=== PATIENT | female | born 1990 | race Caucasian/White ===

== ENCOUNTER 2022-05-04 18:14 | Emergency (ER) | payer MEDICAID ==
[~2022-05-04] VITALS: Ht 167.6 cm; Wt 91.8 kg
[2022-05-04 18:27] VITALS: BP 122/82; TEMP 98.2
[2022-05-04 19:51] LABS: COLLECTION METHOD CLEAN CATCH
[2022-05-04 20:12] LABS: BASO # 0.1 K/mm3 (0.0-0.2); BASO % 0.4 % (0.0-2.0); EOS # 0.2 K/mm3 (0.0-0.7); EOS % 1.5 % (0.0-4.0); GRAN # 9.6 K/mm3 (1.4-6.5); GRAN % 73.5 % (42.2-75.2); HEMATOCRIT 34.8 % (37.0-47.0); HEMOGLOBIN 11.5 g/dl (12.5-16.0); LYMPH # 2.6 K/mm3 (1.2-3.4); LYMPH % 19.7 % (20.0-51.0); MEAN CELL VOLUME 82 fl (80.0-100.0); MEAN CORPUSCULAR HEMOGLOBIN 27 pg (27-31); MEAN CORPUSCULAR HGB CONC 33 g/dl (33.0-37.0); MEAN PLATELET VOLUME 9.9 fl (7.4-10.4); MONO # 0.6 K/mm3 (0.1-0.6); MONO % 4.6 % (1.7-9.3); PLATELET COUNT 280 K/mm3 (130-400); RED BLOOD COUNT 4.26 M/mm3 (4.10-5.30); REDCELL DISTRIBUTION WIDTH-CV 14.1 % (11.5-14.5)
[2022-05-04 20:15] LABS: URINE APPEARANCE Clear (CLEAR/HAZY); URINE BLOOD Negative (NEGATIVE); URINE COLOR Yellow (YELLOW); URINE GLUCOSE Negative (NEGATIVE); URINE KETONE Negative (NEGATIVE); URINE NITRATE Negative (NEGATIVE); URINE PROTEIN(semi-quant) Negative (NEGATIVE); URINE UROBILINOGEN 0.2 E.U/dL (0.2-1.0)
[2022-05-04 20:18] LABS: MUCOUS Present (NOT PRESENT); SQUAMOUS EPITHELIAL 0-2 /hpf (0-10); URINE BACTERIA Rare /hpf (NONE SEEN); URINE RBC 0-2 /hpf (0-2)
[2022-05-04 20:30] LABS: ALBUMIN 3.2 gm/dL (3.5-5.0); BILIRUBIN,TOTAL 0.4 mg/dL (0.2-1.2); CALCIUM 8.7 mg/dL (8.4-10.2); CREATININE, serum 0.7 mg/dL (0.57-1.11); POTASSIUM 3.7 mmol/L (3.5-4.5)
[2022-05-04 21:19] VITALS: PULSE 84
== END 2022-05-04 21:19 | disposition home or self-care (01) ==
LOC: COL.ER 18:14
PROVIDERS: Physician Assistant
DX: O99.512 Diseases of the respiratory system complicating pregnancy, second trimester (principal); R05.3 Chronic cough; U09.9 Post COVID-19 condition, unspecified; Z28.310 Unvaccinated for COVID-19; Z91.040 Latex allergy status; Z3A.16 16 weeks gestation of pregnancy

== ENCOUNTER 2022-10-05 12:55 | Emergency (ER) | payer BC, MEDICAID ==
[~2022-10-05] VITALS: Ht 167.6 cm; Wt 100.4 kg
[~2022-10-05 12:55] MED LIST: ASPIRIN 81M81 MG/TA2 PO; MAGNESIUM200 MG PO; MOTRIN 600600 MG/TAB PO; NATURAL IRON65 MG; PRENATAL TABLET PO; PRILOSEC 20MG20 MG PO; PROCARDIA XL 3030 MG PO; ROXICODONE 55 MG/TAB PO; TRANDATE 100MG100 MG PO; TRANDATE 200MG200 MG PO; TYLENOL 500MG500 MG PO
[2022-10-05 13:02] VITALS: TEMP 98.4
[2022-10-05 13:45] LABS: BASO # 0.1 K/mm3 (0.0-0.2); BASO % 0.6 % (0.0-2.0); EOS # 0.3 K/mm3 (0.0-0.7); EOS % 2.4 % (0.0-4.0); GRAN # 7.3 K/mm3 (1.4-6.5); GRAN % 65.7 % (42.2-75.2); HEMOGLOBIN 10.6 g/dl (12.5-16.0); LYMPH # 2.9 K/mm3 (1.2-3.4); LYMPH % 26.2 % (20.0-51.0); MEAN CELL VOLUME 80 fl (80.0-100.0); MEAN CORPUSCULAR HEMOGLOBIN 24 pg (27-31); MEAN CORPUSCULAR HGB CONC 31 g/dl (33.0-37.0); MEAN PLATELET VOLUME 9.9 fl (7.4-10.4); MONO # 0.5 K/mm3 (0.1-0.6); MONO % 4.7 % (1.7-9.3); PLATELET COUNT 395 K/mm3 (130-400); RED BLOOD COUNT 4.34 M/mm3 (4.10-5.30); REDCELL DISTRIBUTION WIDTH-CV 17.1 % (11.5-14.5)
[2022-10-05 13:49] LABS: HEMATOCRIT 34.5 % (37.0-47.0)
[2022-10-05 13:58] LABS: COLLECTION METHOD CLEAN CATCH
[2022-10-05 13:58] LABS: ALANINE AMINOTRANSFERASE 29 U/L (0-55); ALBUMIN 3.4 gm/dL (3.5-5.0); ALKALINE PHOSPHATASE 96 U/L (40-150); ANION GAP 11 mmol/L (7-16); AST,SGOT 27 U/L (5-34); BILIRUBIN,TOTAL 0.4 mg/dL (0.2-1.2); BLOOD UREA NITROGEN 12 mg/dL (7-19); CALCIUM 9.6 mg/dL (8.4-10.2); CARBON DIOXIDE 22 mmol/L (22-29); CHLORIDE 108 mmol/L (98-107); CREATININE, serum 0.97 mg/dL (0.57-1.11); GLUCOSE 84 mg/dL (70-99); LACTATE DEHYDROGENASE 265 U/L (125-220); MAGNESIUM 1.8 mg/dL (1.6-2.6); PHOSPHOROUS 3.4 mg/dL (2.3-4.7); POTASSIUM 3.9 mmol/L (3.5-4.5); SODIUM 141 mmol/L (136-145); TOTAL PROTEIN 7.3 gm/dL (6.2-8.1); URIC ACID 6.3 mg/dL (2.6-6.0)
[2022-10-05 14:17] LABS: TROPONIN-I < 0.010 ng/mL (0.00-0.033)
[2022-10-05 14:27] LABS: MUCOUS Present (NOT PRESENT); PH 7.5 (5.0-8.5); URINE APPEARANCE Clear (CLEAR/HAZY); URINE BACTERIA None Seen /hpf (NONE SEEN); URINE COLOR Yellow (YELLOW); URINE GLUCOSE Negative (NEGATIVE); URINE KETONE Negative (NEGATIVE); URINE PROTEIN(semi-quant) Negative (NEGATIVE); URINE UROBILINOGEN 0.2 E.U/dL (0.2-1.0)
[2022-10-05 14:28] LABS: URINE BLOOD 3+ (NEGATIVE); URINE NITRATE Negative (NEGATIVE)
[2022-10-05] MEDS ORDERED: NORMODYNE200 MG PO (15:32)
[2022-10-05 15:36] VITALS: BP 148/92; PULSE 67
== END 2022-10-05 16:01 | disposition home or self-care (01) ==
LOC: COL.ER 12:55
PROVIDERS: Emergency Medicine
DX: O14.95 Unspecified pre-eclampsia, complicating the puerperium (principal); Z79.899 Other long term (current) drug therapy; Z88.8 Allergy status to other drugs, medicaments and biological substances; Z28.310 Unvaccinated for COVID-19
CPT/HCPCS: J3475